=== PATIENT | male | born 2000 | race Two or more races ===

== ENCOUNTER 2023-05-23 23:22 | Emergency (ER) | payer MEDICAID ==
[~2023-05-23] VITALS: Ht 175.3 cm; Wt 90.7 kg
[2023-05-24] MEDS ORDERED: METOCLOPRAMIDE HCL 10 MG/2 ML VIAL ONE (00:02)
[2023-05-24] MEDS ORDERED: SUMATRIPTAN SUCCINATE 6 MG/0.5 ML VIAL SQ ONE (00:02)
[2023-05-24] MEDS: IV NS 0.9% 1,000 ML BAG IV ONE (00:20)
[2023-05-24] MEDS: METOCLOPRAMIDE HCL 10 MG/2 ML VIAL IV ONE (00:25)
[2023-05-24] MEDS: SUMATRIPTAN SUCCINATE 6 MG/0.5 ML VIAL SQ ONE (00:25)
[2023-05-24] MEDS ORDERED: SUMA100T PO (01:46)
[2023-05-24 02:23] VITALS: BP 135/76; TEMP 98.2; O2SAT 98
== END 2023-05-24 02:24 | disposition home or self-care (01) ==
LOC: ER 23:30
DX: R51.9 Headache, unspecified (principal); J45.909 Unspecified asthma, uncomplicated
CPT/HCPCS: 99285; 70450; 96374; 96361; 96372; J3030; J2765; J7030